=== PATIENT | male | born 1965 | race Caucasian/White ===

== ENCOUNTER 2017-08-04 20:31 | Inpatient (IN) | payer OTHER ==
[~2017-08-04] VITALS: Ht 182.9 cm; Wt 111.1 kg
--- NOTE | 2017-08-04 20:46 | ED PSYCHIATRIC COMPLAINT ---
History of Present Illness General Chief Complaint: ETOH/Drug Related Complaint Stated Complaint: HERE FOR HIGHWATCH CLEARANCE Source: patient, old records Exam Limitations: despondent and somewhat impatient Vital Signs & Intake/Output Vital Signs & Intake/Output Vital Signs Date Time Temp Pulse Resp B/P B/P Pulse O2 O2 Flow FiO2 Mean Ox Delivery Rate 06/ 1235 98.7 104 22 120/80 06/03 1233 98.7 104 22 120/80 96 Room Air 06/03 1125 98.0 114 20 134/80 06/03 1030 98.0 114 20 134/80 06/03 1030 98.0 114 20 134/80 94 Room Air 06/03 0840 97.0 100 22 118/68 06/03 0838 97.0 100 22 118/68 98 Room Air 06/03 0703 98.2 80 126/76 06/03 0624 98.2 80 18 126/76 06/03 0612 98.2 80 17 126/76 96 Room Air 06/03 0415 97.0 89 18 111/62 06/03 0415 97.9 89 18 111/62 98 Room Air 06/03 0301 88 18 103/58 06/03 0239 88 18 103/58 95 Room Air 06/03 0015 98.1 106 18 123/85 06/02 2216 98.1 106 123/83 95 Room Air 06/02 2129 98.5 116 24 147/104 06/02 2043 98.5 116 24 147/104 96 Room Air ED Intake and Output 06/03 0000 06/02 1200 Intake Total Output Total Balance Patient 245 lb Weight Weight Reported by Patient Measurement Method Allergies Coded Allergies: No Known Allergies (08/04/17) Triage Nurses Notes Reviewed? yes HPI: Patient presents for evaluation of alcohol dependence and grieving. Patient's brother committed suicide on of this week the patient has been binge drinking alcohol since. Although he denies suicide ideation he is clearly upset about what has happened. He states that he has been an alcoholic drinking anywhere from 12-18 beers daily along with wine and vodka. He states he does experience withdrawal symptoms when he quits drinking but has never had a withdrawal seizure. He has had 3 prior detoxifications. His last alcohol use was about 2 hours ago. He denies cigarette smoking or drug use. (Darling CONKLINJoselito) Past History Travel History Traveled to [place] past 21 day No Medical History Any Pertinent Medical History? 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 No (Joselito Hastings MD) Review of Systems Review of Systems Constitutional: Reports: no symptoms. EENTM: Reports: no symptoms. Respiratory: Reports: no symptoms. Cardiovascular: Reports: no symptoms. GI: Reports: no symptoms. Genitourinary: Reports: no symptoms. Musculoskeletal: Reports: no symptoms. Skin: Reports: no symptoms. Neurological/Psychological: Reports: no symptoms. Hematologic/Endocrine: Reports: no symptoms. Immunologic/Allergic: Reports: no symptoms. All Other Systems: Reviewed and Negative (Joselito Hastings MD) Physical Exam Physical Exam General Appearance: see below Neurological/Psychiatric: see below Comments: General: Alert, calm, cooperative but inpatient at times (patient expressed his impatience and wish to leave the emergency department repeatedly) Head: Normocephalic, atraumatic Eyes: Normal inspection, no nystagmus, EOMI Ears: Normal inspection Nose: Normal inspection Throat: Moist mucosa Neck: Supple, no goiter Heart: Regular rate and rhythm, no murmurs rubs or gallops Lungs: Clear to auscultation bilaterally with good air entry Abdomen: Soft nontender nondistended, normal bowel sounds Chest: Nontender Extremities: Normal range of motion grossly, no tremors present, no cyanosis clubbing or edema of the upper extremities Neurologic: cranial nerves II through XII grossly intact, speech clear, gait normal Psychiatric: No apparent delusions or hallucinations, no pressured speech or thought blocking SAD PERSONS Done? patient not suicidal (Joselito Hastings MD) Progress Differential Diagnosis: drug intoxication, drug overdose, drug withdrawal, electrolyte abnormality, hypoglycemia Plan of Care: Orders Procedure Date/time Status Regular Diet 08/05 L Active Pathway - chart 08/05 111 Active House Staff 08/05 111 Active Patient Data 08/05 1117 Active Code Status 08/05 1117 Active Patient Data 08/05 1057 Active OXYGEN SETUP (GEN) 08/05 1044 Active Saline Lock 08/05 1044 Active Admit to inpatient 08/05 1044 Active Vital Signs 08/05 1044 Active Activity/Ambulation 08/05 1044 Active Code Status 08/05 1044 Complete Intake & Output 08/05 0609 Active VTE Mechanical Prophylaxis 08/05 UNK Active SOCIAL WORK CONSULT 08/05 UNK Active PSYCHIATRIC CONSULT 08/05 UNK Active CIWA 08/05 2119 Active URINE DRUG SCREEN FOR ER ONLY 08/05 2119 Complete MAGNESIUM 08/05 2119 Complete LIPASE 08/05 2119 Complete ETHANOL 08/05 2119 Complete COMPREHENSIVE METABOLIC PANEL 08/05 2119 Complete CBC WITHOUT DIFFERENTIAL 08/05 2119 Complete Current Medications Sig/Carol Start time Last Medication Dose Stop Time Status Admin Multivitamins 1 TAB DAILY 08/06 0900 AC (Theragran Vitamins) Trazodone HCl 50 MG AT BEDTIME 08/05 2100 AC (Desyrel) Lorazepam 2 MG Q6 08/05 1200 AC 08/05 (Ativan) 1205 Dextrose/Sodium 1,000 ML Q13H 08/05 1130 AC 08/05 Chloride 1123 (D5W-1/2 Normal Saline 1000ML) Clonidine 0.1 MG BID 08/05 1119 AC (Catapres) Enoxaparin Sodium 40 MG DAILY 08/05 1117 AC 08/05 (Lovenox) 1134 Thiamine HCl 100 MG DAILY 08/05 1116 AC (Vitamin B1) Lorazepam 0 Q1P PRN 08/05 1115 AC (Ativan) Gabapentin 300 MG Q8 08/05 0847 AC 08/05 (Neurontin) 0840 Laboratory Tests 08/04/172123: Urine Opiates Screen < 100, Methadone Screen < 40, Barbiturate Screen < 60, Ur Phencyclidine Scrn < 6.00, Amphetamines Screen < 100, U Benzodiazepines Scrn < 85, Urine Cocaine Screen < 50, Urine Cannabis Screen < 5.00 08/04/172119: Anion Gap 16, Estimated GFR > 60, BUN/Creatinine Ratio 9.0, Glucose 115 H, Calcium 9.1, Magnesium 2.4 H, Total Bilirubin 0.5, AST 42, ALT 54, Alkaline Phosphatase 67, Total Protein 7.7, Albumin 4.6, Globulin 3.1, Albumin/Globulin Ratio 1.5, Lipase 230, CBC w Diff NO MAN DIFF REQ, RBC 5.68, MCV 95.3 H, MCH 32.9 H, MCHC 34.5, RDW 13.4, MPV 6.7 L, Gran % 61.5, Lymphocytes % 30.1, Monocytes % 6.8, Eosinophils % 0.9, Basophils % 0.7, Absolute Granulocytes 3.6, Absolute Lymphocytes 1.8, Absolute Monocytes 0.4, Absolute Eosinophils 0.1, Absolute Basophils 0, Serum Alcohol 294.0 Comments: 08/04/2017 10:04:26 PM Micha is sleeping comfortably. 08/04/2017 11:03:42 PM Micha is now awake and starting to feel a bit worse. He states he is feeling very anxious and uncomfortable. He is requesting something to help him fall asleep. 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 (Darling CONKLIN,Joselito Andrew) Departure Departure Disposition: STILL A PATIENT Condition: Stable Clinical Impression Primary Impression: Alcohol dependence Secondary Impressions: Grieving Departure Forms: Customer Survey General Discharge Information (Darling CONKLIN,Joselito Andrew) Admission Note Spoke With: Terri Cook MD Documentation of Exam: Documentation of any treatments & extenuating circumstances including Concerns Regarding Discharge (functional status, medication knowledge or non-compliance, living conditions, etc.) that warrant an admission rather than observation: Serial CIWA benzodiazepine to prevent alcohol withdrawal psychiatric evaluation for alcohol dependence medication adjustment continuing care discharge planning (Ethan Jennings MD) Critical Care Note Critical Care Note Critical Care Time: 30-74 min (40) (Ethan Jennings MD)
[2017-08-04 21:29] VITALS: BP 147/104
[2017-08-04 21:32] LABS: ABSOLUTE BASOPHIL COUNT 0 /CUMM (0.0-0.2); ABSOLUTE EOSINOPHIL COUNT 0.1 /CUMM (0.0-0.7); ABSOLUTE GRANULOCYTE CT 3.6 /CUMM (1.4-6.5); ABSOLUTE LYMPH COUNT 1.8 /CUMM (1.2-3.4); ABSOLUTE MONOCYTE COUNT 0.4 /CUMM (0.10-0.60); BASOPHIL % 0.7 % (0.0-2.0); EOSINOPHIL % 0.9 % (0-5); GRANULOCYTE % 61.5 % (42.2-75.2); HEMATOCRIT 54.2 % (42-52); MEAN CORPUSCULAR HGB 32.9 PG (27.0-31.0); MEAN CORPUSCULAR HGB CONC 34.5 G/DL (33.0-37.0); MEAN CORPUSCULAR VOLUME 95.3 FL (80.0-94.0); MEAN PLATELET VOLUME 6.7 FL (7.4-10.4); PLATELET COUNT 260 /CUMM (130-400); RBC DISTRIBUTION WIDTH 13.4 % (11.5-14.5); RED BLOOD CELL CT 5.68 /CUMM (4.70-6.10); WHITE BLOOD CELL COUNT 5.9 /CUMM (4.8-10.8)
[2017-08-05] VITALS (12 sets, daily range): BP systolic 103–150; BP diastolic 58–100
--- NOTE | 2017-08-05 11:17 | History & Physical ---
Jaquelin CONKLIN,Glenny 08/05/17 1106: General Information and HPI MD Statement: I have seen and personally examined MARCELLA MOMIN and documented this H&P. The patient is a 52 year old M who presented with a patient stated chief complaint of [EtOH withdrawal]. Source of Information: patient, family, old records Exam Limitations: no limitations History of Present Illness: Patient is a 52-year-old male here for the high watch clearance. Past medical history -anxiety, depression, insomnia According to the ED notes -patient's brother committed suicide on (08/02), since then he has been binge drinking alcohol. He denies SI/HI. Alcohol drinking history -he started drinking alcohol since the age of 17. He was using wine, vodka, burbin. He usually drinks 1-2 bottles in a day and one bottle in the night but sometimes to binge drinking. He tried to quit alcohol and joint detox program 3 times ,([facility] He started drinking alcohol again because he cannot control himself and usually started a social drinker. He denies for any social related problems including drunk driving, and alcohol related withdrawal seizures hospital admission, intubation. Has last drink was 08/04/2017, around 8 AM after he woke up. Personal history -he lives at home with the family including and 2 sons. 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 Allergies -no known drug allergies Surgeries-repair of inguinal hernia bilaterally in 1981, fracture of fingers? Pins Family history -alcohol use disorder in siblings and parents and grandparents. 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 Neurological/Psychological: Reports: tremors. Exam & Diagnostic Data Last 24 Hrs of Vital Signs/I&O Vital Signs Date Time Temp Pulse Resp B/P B/P Pulse O2 O2 Flow FiO2 Mean Ox Delivery Rate 08/05 1125 98.0 114 20 134/80 06/03 1030 98.0 114 20 134/80 06/03 1030 98.0 114 20 134/80 94 Room Air 06/03 0840 97.0 100 22 118/68 06/03 0838 97.0 100 22 118/68 98 Room Air 06/03 0703 98.2 80 126/76 06/03 0624 98.2 80 18 126/76 06/03 0612 98.2 80 17 126/76 96 Room Air 06/03 0415 97.0 89 18 111/62 06/03 0415 97.9 89 18 111/62 98 Room Air 06/03 0301 88 18 103/58 06/03 0239 88 18 103/58 95 Room Air 06/03 0015 98.1 106 18 123/85 /02 2216 98.1 106 123/83 95 Room Air /02 2129 98.5 116 24 147/104 08/04 2043 98.5 116 24 147/104 96 Room Air Intake & Output 08/05 1600 08/05 0800 08/05 0000 Intake Total 240 Output Total Balance 240 Intake, Oral 240 Patient 111.13 kg Weight Weight Reported by Patient Measurement Method Physical Exam General Appearance Alert, Oriented X3, Cooperative, No Acute Distress Skin FLUSHED HEENT Atraumatic, PERRLA, EOMI Neck Supple, No JVD Cardiovascular Normal S1, Normal S2 Lungs Clear to Auscultation, Normal Air Movement Abdomen Soft, No Tenderness Extremities No Clubbing, No Cyanosis, No Edema, SCABS AND EXCORIATION OF MELENDEZ Vascular Normal Pulses, Pulses Symmetrical Last 24 Hrs of Labs/Nicola: Laboratory Tests 08/04/172123: Urine Opiates Screen < 100, Methadone Screen < 40, Barbiturate Screen < 60, Ur Phencyclidine Scrn < 6.00, Amphetamines Screen < 100, U Benzodiazepines Scrn < 85, Urine Cocaine Screen < 50, Urine Cannabis Screen < 5.00 08/04/172119: Anion Gap 16, Estimated GFR > 60, BUN/Creatinine Ratio 9.0, Glucose 115 H, Calcium 9.1, Magnesium 2.4 H, Total Bilirubin 0.5, AST 42, ALT 54, Alkaline Phosphatase 67, Total Protein 7.7, Albumin 4.6, Globulin 3.1, Albumin/Globulin Ratio 1.5, Lipase 230, CBC w Diff NO MAN DIFF REQ, RBC 5.68, MCV 95.3 H, MCH 32.9 H, MCHC 34.5, RDW 13.4, MPV 6.7 L, Gran % 61.5, Lymphocytes % 30.1, Monocytes % 6.8, Eosinophils % 0.9, Basophils % 0.7, Absolute Granulocytes 3.6, Absolute Lymphocytes 1.8, Absolute Monocytes 0.4, Absolute Eosinophils 0.1, Absolute Basophils 0, Serum Alcohol 294.0 Diagnostic Data EKG Results NOT DONE CXR Results not done Assessment/Plan Assessment: Patient is a 52-year-old male here for the high watch clearance. ED course -vital signs at the time of admission -temperature 98.5, pulse 116, respiratory rate 12, blood pressure 147/104, SPO2 96% on room air. Blood workup -hemoglobin 18.7, hematocrit 54.2, MCV 95, WBC 5.9, platelet count 260, serum sodium 135, potassium 4.2, chloride 106, anion gap 16, BUN 9, creatinine 1.0, glucose 115, calcium 9.1, magnesium 2.4, total bilirubin 0.5, AST 42, ALT 54, alkaline phosphatase 67, total protein 7.7, albumin 4.6, U tox was negative, serum alcohol 294. He was given Lorazepam, gabapentin, multivitamin in the ED. Assessment and plan Alcohol use disorder - * We will admit the patient to general medicine floor * We will start patient on IV fluids 75 cc/h * Injection Ativan according to the CIWA score * Tablet lorazepam 2 mg every 6 * Tablet trazodone 50 mg at bedtime * Tablet clonidine 0.1 mg twice daily * Tablet multivitamin once daily * Psych consult * Social work consult high hematocrit and hemoglobin- * We started patient on IV fluids 75 cc/h * We will recheck CBC and hematocrit tomorrow * If he continued to have high hematocrit. Advised him to follow-up with nutrition professor as an outpatient. Patient wanted to go [facility] care after detox. He also requested that his brother's is on Sunday, and he wanted to attend it. Diet -regular diet CODE STATUS-full code DVT prophylaxis- ALP s/heparin As Ranked By This Provider Problem List: 1. Alcohol dependence Core Measures/Misc (11/19) Acute Coronary Syndrome ACS Diagnosis: No Congestive Heart Failure Congestive Heart Failure Diagnosis No Cerebrovascular Accident CVA/TIA Diagnosis: No VTE (View Protocol) VTE Risk Factors Age>40 No Mechanical VTE Prophylaxis d/t N/A MechProphylax Ordered No VTE Pharm Prophylaxis d/t NA PharmProphylax ordered Sepsis (View protocol) Sepsis Present: No If YES complete Sepsis Event Note If YES complete Sepsis Event Note Terri Cook MD 08/05/17 1246: Core Measures/Misc (11/19) Sepsis (View protocol) If YES complete Sepsis Event Note If YES complete Sepsis Event Note Attending MD Review Statement Attending Statement Attending MD Statement: examined this patient, discuss w/resident/PA/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 His CIWA scores were high he was persistently tachycardic and required multiple doses of Ativan in the ER. At this point we are going to bring him into GEN med, he appears to be hemoconcentrated with a hemoglobin of 18 so will hydrate him gently and repeat the hemoglobin. Give Ativan [id number] and Ativan per CIWA. We'll do thiamine, folate and multivitamins. He is tachycardic so will check a baseline EKG. DVT prophylaxis, social work consult and outpatient follow-up on discharge. Patient is extremely keen on leaving on Sunday as it's his brother's on that day.
--- NOTE | 2017-08-05 12:46 | Admission Certification ---
Admission Certification Certification Statement - As attending physician, I certify that at the time of - admission, based on clinical presentation, severity of - symptoms, need for further diagnostic testing and - therapeutic interventions, and risk of adverse outcomes - without in-hospital treatment, in my clinical assessment, - this patient requires an acute hospital stay for a minimum - of two nights or longer. I have also considered psychsocial - factors such as support system, advanced age, financial - issues, cognitive issues, and failed out-patient treatments, - past re-admission history, safety of patient, and lack of - compliance as applicable. Specific rationale supporting this admission is: Acute alcohol withdrawal with impending DTs.
[2017-08-06] VITALS (11 sets, daily range): BP systolic 111–160; BP diastolic 69–106
--- NOTE | 2017-08-06 07:12 | PN- Housestaff ---
Subjective Follow-up For: Alcohol detox Subjective: CIWA 0-20. Patient reports he lost his brother to suicide last and was what prompted him to drink. He denies nausea, vomiting, abdominal pain, SI/HI Review of Systems Constitutional: Reports: see HPI. Objective Last 24 Hrs of Vital Signs/I&O Vital Signs Date Time Temp Pulse Resp B/P B/P Pulse O2 O2 Flow FiO2 Mean Ox Delivery Rate 08/06 1331 98.4 81 18 128/73 94 Room Air 06/04 1135 97.5 84 18 139/95 96 Room Air 06/04 1006 98.2 95 19 136/83 95 Room Air 06/04 1005 98.2 97 19 136/83 95 Room Air 06/04 0900 80 18 130/90 94 Room Air 06/04 0754 98.0 64 18 111/69 06/04 0731 98.0 64 18 111/69 96 Room Air 06/04 0519 77 18 147/93 06/04 0511 77 18 147/93 93 Room Air 06/04 0244 86 18 133/82 06/04 0049 98.0 97 18 151/84 95 Room Air 06/04 0046 98.0 97 18 151/84 06/03 2245 104 18 145/94 06/03 2242 104 18 145/94 94 Room Air 06/03 2135 98.6 91 18 150/100 06/03 2030 72 18 138/71 97 Room Air 06/03 1832 91 18 150/100 06/03 1831 91 18 150/100 95 Room Air 06/03 1701 98.6 92 18 150/83 06/03 1643 98.2 92 18 150/83 95 Room Air Intake & Output 08/06 1600 /04 0800 06/04 0000 Intake Total 1080 Output Total 300 Balance 780 Intake, IV 600 Intake, Oral 480 Output, Urine 300 Patient 245 lb Weight Weight Reported by Patient Measurement Method Physical Exam General Appearance: Alert, Oriented X3, Cooperative, No Acute Distress Cardiovascular: Regular Rate, Normal S1, Normal S2 Lungs: Clear to Auscultation, Normal Air Movement Abdomen: Normal Bowel Sounds, Soft, No Tenderness Current Medications: Current Medications Sig/Carol Start time Last Medication Dose Route Stop Time Status Admin Clonidine 0 .STK-MED ONE 08/05 2132 DC PO Clonidine 0.1 MG BID 08/05 1119 AC 08/06 PO 0902 Dextrose/Sodium 1,000 ML Q13H 08/05 1130 AC 08/06 Chloride IV 1400 Enoxaparin Sodium 40 MG DAILY 08/05 1117 AC 08/06 SC 0902 Gabapentin 0 .STK-MED ONE 08/06 0636 DC PO Gabapentin 0 .STK-MED ONE 08/05 2134 DC PO Gabapentin 300 MG Q8 08/05 0847 AC 08/06 PO 1400 Lorazepam 0 .STK-MED ONE 08/06 1219 DC PO Lorazepam 0 .STK-MED ONE 08/06 0907 DC .ROUTE Lorazepam 0 .STK-MED ONE 08/06 0636 DC PO Lorazepam 0 .STK-MED ONE 08/06 0041 DC PO Lorazepam 0 .STK-MED ONE 08/06 0041 DC .ROUTE Lorazepam 0 .STK-MED ONE 08/05 2312 DC .ROUTE Lorazepam 0 .STK-MED ONE 08/05 2044 DC .ROUTE Lorazepam 0 .STK-MED ONE 08/05 1842 DC .ROUTE Lorazepam 0 .STK-MED ONE 08/05 1835 DC PO Lorazepam 0 .STK-MED ONE 08/05 1715 DC .ROUTE Lorazepam 2 MG Q6 08/05 1200 AC 08/06 PO 1214 Lorazepam 0 Q1P PRN 08/05 1115 AC 08/06 IV 0902 Multivitamins 1 TAB DAILY 08/06 0900 AC 08/06 PO 0902 Thiamine HCl 100 MG DAILY 08/05 1116 AC 08/06 PO 0902 Trazodone HCl 0 .STK-MED ONE 08/05 2133 DC PO Trazodone HCl 50 MG AT BEDTIME 08/05 2100 AC 08/05 PO 2127 Last 24 Hrs of Lab/Nicola Results Last 24 Hrs of Labs/Mics: Laboratory Tests 08/06/17 1327: Anion Gap 4 L, Estimated GFR > 60, BUN/Creatinine Ratio 14.0, CBC w Diff NO MAN DIFF REQ, RBC 4.83, MCV 95.8 H, MCH 33.1 H, MCHC 34.6, RDW 13.2, MPV 7.4, Gran % 75.7 H, Lymphocytes % 11.6 L, Monocytes % 10.9 H, Eosinophils % 1.6, Basophils % 0.2, Absolute Granulocytes 4.2, Absolute Lymphocytes 0.6 L, Absolute Monocytes 0.6, Absolute Eosinophils 0.1, Absolute Basophils 0 Assessment/Plan Assessment: Mr. Elam is a 52-year-old male past medical history anxiety, depression, insomnia who presented to the ED for alcohol detox and high watch clearance. Plan: Monitor and replete magnesium and potassium PRN Continue Ativan per CIWA protocol Continue taper with Scheduled Ativan at 2 mg every 6 Continue MVI, thiamine supplement Appreciate [facility] recommendations for lost of family member Diet: Regular DVT ppx: sc Lovenox Code: Full Problem List: 1. Alcohol dependence 2. Grieving Pain Ratin Pain Location: NA Pain Goal: Remain pain free Pain Plan: NA Tomorrow's Labs & Rationales: none
--- NOTE | 2017-08-06 13:08 | PN- Att Addend ---
Attending Addendum Attending Brief Note Patient seen and examined, offers no complaints. Patient is withdrawing from alcohol and CIWA sores are running high. Vital Signs Date Time Temp Pulse Resp B/P B/P Pulse O2 O2 Flow FiO2 Mean Ox Delivery Rate 06/04 1135 97.5 84 18 139/95 96 Room Air 06/04 1006 98.2 95 19 136/83 95 Room Air 06/04 1005 98.2 97 19 136/83 95 Room Air 06/04 0900 80 18 130/90 94 Room Air 06/04 0754 98.0 64 18 111/69 06/04 0731 98.0 64 18 111/69 96 Room Air 06/04 0519 77 18 147/93 06/04 0511 77 18 147/93 93 Room Air 06/04 0244 86 18 133/82 06/04 0049 98.0 97 18 151/84 95 Room Air 06/04 0046 98.0 97 18 151/84 06/03 2245 104 18 145/94 06/03 2242 104 18 145/94 94 Room Air 06/03 2135 98.6 91 18 150/100 06/03 2030 72 18 138/71 97 Room Air 06/03 1832 91 18 150/100 06/03 1831 91 18 150/100 95 Room Air 06/03 1701 98.6 92 18 150/83 06/03 1643 98.2 92 18 150/83 95 Room Air 06/03 1430 98.1 107 20 130/80 06/03 1430 98.1 107 20 130/80 96 Room Air 06/03 1329 98.0 100 122/86 on exam; aox3, nad. cv; s1,s2, rrr resp; clear ab; soft, nt, bs+ ext; no edema no labs. A/P: 52-year-old male with past medical history significant for alcohol use was admitted with acute on intoxication needing detox. His brother committed suicide on August 02 tests but exacerbated that drinking. Patient currently on scheduled Ativan. Continue the current dose of Ativan. Continue when necessary Ativan with fever protocol. Please check his CBC and BP. Patient did have polycythemia on initial lab likely secondary to dehydration. Patient getting IV hydration. Patient on Lovenox for DVT prophylaxis. PLease obtain SW consult.
[2017-08-06 13:51] LABS: ABSOLUTE BASOPHIL COUNT 0 /CUMM (0.0-0.2); ABSOLUTE EOSINOPHIL COUNT 0.1 /CUMM (0.0-0.7); ABSOLUTE GRANULOCYTE CT 4.2 /CUMM (1.4-6.5); ABSOLUTE LYMPH COUNT 0.6 /CUMM (1.2-3.4); ABSOLUTE MONOCYTE COUNT 0.6 /CUMM (0.10-0.60); BASOPHIL % 0.2 % (0.0-2.0); EOSINOPHIL % 1.6 % (0-5); GRANULOCYTE % 75.7 % (42.2-75.2); MEAN CORPUSCULAR HGB 33.1 PG (27.0-31.0); MEAN CORPUSCULAR HGB CONC 34.6 G/DL (33.0-37.0); MEAN CORPUSCULAR VOLUME 95.8 FL (80.0-94.0); MEAN PLATELET VOLUME 7.4 FL (7.4-10.4); PLATELET COUNT 167 /CUMM (130-400); RBC DISTRIBUTION WIDTH 13.2 % (11.5-14.5); RED BLOOD CELL CT 4.83 /CUMM (4.70-6.10); WHITE BLOOD CELL COUNT 5.5 /CUMM (4.8-10.8)
[2017-08-06 13:55] LABS: HEMATOCRIT 46.3 % (42-52)
[2017-08-07 00:53] VITALS: BP 116/71
[2017-08-07 06:43] VITALS: BP 107/81
--- NOTE | 2017-08-07 08:38 | PN- Housestaff ---
Zoe Cabrales 08/07/17 0838: Subjective Follow-up For: Alcohol detox Subjective: Patient reports his brother's is today and will like to attend and come back afterwards to complete detox treatment. Patient in bed crying in grief but denies any SI/HI Left message on vm with Roseline do update but no answer Review of Systems Constitutional: Reports: see HPI. Objective Last 24 Hrs of Vital Signs/I&O Vital Signs Date Time Temp Pulse Resp B/P B/P Pulse O2 O2 Flow FiO2 Mean Ox Delivery Rate / 0926 96.8 76 18 109/59 06/05 0845 96.8 76 18 109/59 06/05 0844 96.8 76 18 109/59 98 Room Air 06/05 0643 96.9 91 20 107/81 06/05 0641 96.9 91 18 107/81 96 Room Air 06/05 0313 77 20 100 Room Air 06/05 0253 77 20 06/05 0053 97.0 71 20 116/71 06/05 0053 97.0 71 18 116/71 94 Room Air 06/04 2253 96.9 86 18 152/106 06/04 2253 96.4 86 18 152/106 97 Room Air 06/04 2053 98.1 83 20 135/91 06/04 2053 98.1 83 18 135/91 06/04 2053 98.1 83 18 135/91 95 Room Air 06/04 1857 98.0 88 18 148/74 06/04 1856 98.0 88 18 148/74 98 Room Air 06/04 1554 97.6 91 18 160/86 06/04 1535 97.6 91 18 160/86 97 Room Air 06/04 1331 98.4 81 18 128/73 94 Room Air 06/04 1135 97.5 84 18 139/95 96 Room Air Intake & Output 06/05 1600 06/05 0800 06/05 0000 Intake Total 495 Output Total 700 Balance -205 Intake, IV 375 Intake, Oral 120 Output, Urine 700 Physical Exam General Appearance: Alert, Oriented X3, Cooperative, Moderate Distress Cardiovascular: Regular Rate, Normal S1, No Murmurs Lungs: Clear to Auscultation, Normal Air Movement Abdomen: Normal Bowel Sounds, Soft, No Tenderness Current Medications: Current Medications Sig/Carol Start time Last Medication Dose Route Stop Time Status Admin Clonidine 0.1 MG BID 08/05 1119 08/07 PO 0926 Dextrose/Sodium 1,000 ML Q13H 08/05 1130 08/07 Chloride IV 0252 Enoxaparin Sodium 40 MG DAILY 08/05 1117 08/07 SC 0926 Gabapentin 0 .STK-MED ONE 08/07 0645 DC PO Gabapentin 300 MG Q8 08/05 0847 08/07 PO 0641 Lorazepam 0 .STK-MED ONE 08/07 0936 DC .ROUTE Lorazepam 0 .STK-MED ONE 08/07 0656 DC .ROUTE Lorazepam 0 .STK-MED ONE 08/07 0646 DC PO Lorazepam 0 .STK-MED ONE 08/07 0049 DC PO Lorazepam 0 .STK-MED ONE 08/06 1823 DC PO Lorazepam 0 .STK-MED ONE 08/06 1606 DC .ROUTE Lorazepam 0 .STK-MED ONE 08/06 1219 DC PO Lorazepam 2 MG Q6 08/05 1200 AC 08/07 PO 0641 Lorazepam 0 Q1P PRN 08/05 1115 08/07 IV 0931 Multivitamins 1 TAB DAILY 08/06 0900 08/07 PO 0926 Thiamine HCl 100 MG DAILY 08/05 1116 08/07 PO 0926 Trazodone HCl 50 MG AT BEDTIME 08/05 2100 08/06 PO 2052 Last 24 Hrs of Lab/Nicola Results Last 24 Hrs of Labs/Mics: Laboratory Tests 08/06/17 1327: Anion Gap 4 L, Estimated GFR > 60, BUN/Creatinine Ratio 14.0, CBC w Diff NO MAN DIFF REQ, RBC 4.83, MCV 95.8 H, MCH 33.1 H, MCHC 34.6, RDW 13.2, MPV 7.4, Gran % 75.7 H, Lymphocytes % 11.6 L, Monocytes % 10.9 H, Eosinophils % 1.6, Basophils % 0.2, Absolute Granulocytes 4.2, Absolute Lymphocytes 0.6 L, Absolute Monocytes 0.6, Absolute Eosinophils 0.1, Absolute Basophils 0 Assessment/Plan Assessment: Mr. Elam is a 52-year-old male past medical history anxiety, depression, insomnia who presented to the ED for alcohol detox and high watch clearance. Plan: Await Social work recommendations for patient to attend today and return for treatment. If no options patient will leave AMA Monitor and replete magnesium and potassium PRN Continue Ativan per CIWA protocol Continue taper with Scheduled Ativan at 2 mg every 6 Continue MVI, thiamine supplement Appreciate [facility] recommendations for lost of family member Diet: Regular DVT ppx: sc Lovenox Code: Full Problem List: 1. Grieving 2. Alcohol dependence Pain Ratin Pain Location: NA Pain Goal: Remain pain free Pain Plan: NA Tomorrow's Labs & Rationales: none Britany Mansfield MD 08/07/17 1202: Attending MD Review Statement Attending Statement Attending MD Statement: examined this patient, discuss w/resident/PA/DATA WAREHOUSING ENGINEER, agreed w/resident/PA/DATA WAREHOUSING ENGINEER, reviewed EMR data (avail), discussed with nursing, discussed with case mgmt, reviewed images, amended to note Attending Assessment/Plan: Patient seen and examined, he is very upset and sad today because today is his brother's . He wants to attend the . His CIWA scores are running okay and this morning it was 10. Patient wants to attend his brother's . Vital Signs Date Time Temp Pulse Resp B/P B/P Pulse O2 O2 Flow FiO2 Mean Ox Delivery Rate 08/07 1045 97.8 78 18 164/82 06/ 1041 97.8 78 18 164/82 94 Room Air 06/05 0926 96.8 76 18 109/59 06/05 0845 96.8 76 18 109/59 06/05 0844 96.8 76 18 109/59 98 Room Air 06/05 0643 96.9 91 20 107/81 06/05 0641 96.9 91 18 107/81 96 Room Air 06/05 0313 77 20 100 Room Air 06/05 0253 77 20 06/05 0053 97.0 71 20 116/71 06/05 0053 97.0 71 18 116/71 94 Room Air / 225 96.9 86 18 152/106 /2252 96.4 86 18 152/106 97 Room Air /2052 98.1 83 20 135/91 /2052 98.1 83 18 135/91 /2052 98.1 83 18 135/91 95 Room Air 06/04 1857 98.0 88 18 148/74 06/04 1856 98.0 88 18 148/74 98 Room Air 08/06 1554 97.6 91 18 160/86 08/06 1535 97.6 91 18 160/86 97 Room Air 08/06 1331 98.4 81 18 128/73 94 Room Air on exam; aox3, nad. cv; s1,s2, rrr resp; clear abd; soft, nt, bs+ ext; no edema Laboratory Tests 08/06 1327 Chemistry Sodium (137 - 145 mmol/L) 138 Potassium (3.5 - 5.1 mmol/L) 3.9 Chloride (98 - 107 mmol/L) 104 Carbon Dioxide (22 - 30 mmol/L) 30 Anion Gap (5 - 16) 4 L BUN (9 - 20 mg/dL) 14 Creatinine (0.7 - 1.2 mg/dL) 1.0 Estimated GFR (>60 ml/min) > 60 BUN/Creatinine Ratio (7 - 25 %) 14.0 Hematology CBC w Diff NO MAN DIFF REQ WBC (4.8 - 10.8 /CUMM) 5.5 RBC (4.70 - 6.10 /CUMM) 4.83 Hgb (14.0 - 18.0 G/DL) 16.0 Hct (42 - 52 %) 46.3 MCV (80.0 - 94.0 FL) 95.8 H MCH (27.0 - 31.0 PG) 33.1 H MCHC (33.0 - 37.0 G/DL) 34.6 RDW (11.5 - 14.5 %) 13.2 Plt Count (130 - 400 /CUMM) 167 MPV (7.4 - 10.4 FL) 7.4 Gran % (42.2 - 75.2 %) 75.7 H Lymphocytes % (20.5 - 51.1 %) 11.6 L Monocytes % (1.7 - 9.3 %) 10.9 H Eosinophils % (0 - 5 %) 1.6 Basophils % (0.0 - 2.0 %) 0.2 Absolute Granulocytes (1.4 - 6.5 /CUMM) 4.2 Absolute Lymphocytes (1.2 - 3.4 /CUMM) 0.6 L Absolute Monocytes (0.10 - 0.60 /CUMM) 0.6 Absolute Eosinophils (0.0 - 0.7 /CUMM) 0.1 Absolute Basophils (0.0 - 0.2 /CUMM) 0 A/P; 52-year-old male with past medical history significant for alcohol use was admitted with acute on intoxication needing detox. Patient currently on scheduled and when necessary Ativan per seed off. He is upset and sad today because today is his brother's which she wants to attend. Discussed with social insurance analyst who had discussed the Paul Mims MD. Plan is to get psych evaluation to make sure that he has the capacity. To me he looks like that he does have a capacity to make his own decisions. But will get psychiatry on board as well. Patient will have to leave AGAINST MEDICAL ADVICE to attend the . We will not give him any medication supply before he leaves but he is due to get his scheduled dose of Ativan this afternoon. He still on high-dose scheduled Ativan therefore medically he is not stable for discharge yet.
[2017-08-07 08:45] VITALS: BP 109/59
[2017-08-07 10:45] VITALS: BP 164/82
[2017-08-07] MEDS ORDERED: GABAPENTIN300 M2 PO ×2 (11:13→15:06)
[2017-08-07] MEDS ORDERED: VITAMIN B-1100 MG PO ×2 (11:13→15:06)
[2017-08-07] MEDS ORDERED: ONE DAILY MULT1 EAC2 PO ×2 (11:13→15:06)
[2017-08-07] MEDS ORDERED: CLONIDINE HCL0.1 MG PO ×2 (11:13→15:06)
--- NOTE | 2017-08-07 11:15 | Patient Discharge Instructions ---
Discharge Instructions General Discharge Information You were seen/treated for: Alcohol detox Special Instructions: - By leaving AMA, you understand the risks of clinical deterioration including anxiety, agitation, tremors, seizures, hallucinations, abdominal pain, nausea/ vomiting/diarrhea/constipation, or any other of your underlying medical conditions which could become as severe as causes of . You should return to any emergency/urgent care services without closest proximity if any worsening of your existing or new-onset of discomfort/symptoms. - Continue your current medications per discharge instructions. - Please watch for the symptoms stated above and return to the ED as soon as possible Diet Continue normal diet: Yes Activity Full Activity/No Limits: Yes Acute Coronary Syndrome Inclusion Criteria At DC or during hospital stay patient has or had the following: ACS DIAGNOSIS No Discharge Core Measures Meds if any: Prescribed or Continued at Discharge Meds if any: NOT Prescribed or Continued at Discharge Congestive Heart Failure Inclusion Criteria At DC or during hospital stay patient has or had the following: CHF DIAGNOSIS No Discharge Core Measures Meds if any: Prescribed or Continued at Discharge Meds if any: NOT Prescribed or Continued at Discharge Cerebrovascular accident Inclusion Criteria At DC or during hospital stay patient has or had the following: CVA/TIA Diagnosis No Discharge Core Measures Meds if any: Prescribed or Continued at Discharge Meds if any: NOT Prescribed or Continued at Discharge Venous thromboembolism Inclusion Criteria VTE Diagnosis No VTE Type NONE VTE Confirmed by (Test) NONE Discharge Core Measures - Per Current guidelines, there needs to be overlap - treatment for the first 5 days of Warfarin therapy. - If discharged on Warfarin prior to 5 days of - overlap therapy, the patient will need to be - assessed for post discharge needs including - *Post discharge parental anticoagulation - *Warfarin and/or parental anticoagulation education - *Follow up date to check INR post discharge At least 5 days overlap therapy as Inpatient No Meds if any: Prescribed or Continued at Discharge Note: Overlap Therapy is Warfarin and Anticoagulant Meds if any: NOT Prescribed or Continued at Discharge
[2017-08-07 12:28] VITALS: BP 136/82
--- NOTE | 2017-08-07 12:29 | Cons- Psychiatry ---
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 His brother recently committed suicide and pt is requesting to leave to go to . Consult called for capacity to leave AMA. ED course: Laboratory Tests 08/06/17 1327: Anion Gap 4 L, Estimated GFR > 60, BUN/Creatinine Ratio 14.0, CBC w Diff NO MAN DIFF REQ, RBC 4.83, MCV 95.8 H, MCH 33.1 H, MCHC 34.6, RDW 13.2, MPV 7.4, Gran % 75.7 H, Lymphocytes % 11.6 L, Monocytes % 10.9 H, Eosinophils % 1.6, Basophils % 0.2, Absolute Granulocytes 4.2, Absolute Lymphocytes 0.6 L, Absolute Monocytes 0.6, Absolute Eosinophils 0.1, Absolute Basophils 0 Vital Signs Date Time Temp Pulse Resp B/P B/P Pulse O2 O2 Flow FiO2 Mean Ox Delivery Rate 08/07 1045 97.8 78 18 164/82 06/ 1041 97.8 78 18 164/82 94 Room Air 06/05 0926 96.8 76 18 109/59 06/05 0845 96.8 76 18 109/59 06/05 0844 96.8 76 18 109/59 98 Room Air 06/05 0643 96.9 91 20 107/81 06/05 0641 96.9 91 18 107/81 96 Room Air 06/05 0313 77 20 100 Room Air 06/05 0253 77 20 06/05 0053 97.0 71 20 116/71 06/05 0053 97.0 71 18 116/71 94 Room Air 06/04 2253 96.9 86 18 152/106 /2252 96.4 86 18 152/106 97 Room Air 08/06 2052 98.1 83 20 135/91 /2052 98.1 83 18 135/91 /2052 98.1 83 18 135/91 95 Room Air 06/04 1857 98.0 88 18 148/74 / 185 98.0 88 18 148/74 98 Room Air 06/04 1554 97.6 91 18 160/86 06/ 1535 97.6 91 18 160/86 97 Room Air 06/ 1331 98.4 81 18 128/73 94 Room Air CIWA: 0, 10, 12, 8. Over ten mg of Ativan in 24 hours. PPHx: Pt has been drinking since he was 17. He has been to [place] and [place]. No DUI, no intubation or ICU admits for etoh intox/detox. No suicide attempts, no inpatient admits for mental illness. Was treated for depression/ anxiety in the remote past does not remember med trials. No recent depressive sx per his report. He has been drinking over a fifth of hard liquor and since of his brother was binge drinking. Motivated for treatment. 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 Lives wtih and two children. On exam, pt is in bed in [facility] in [facility]. He is alert and oriented. He is slightly tremulous. His speech is clear and goal-directed with normal rate and volume. His mood is sad but "not depressed." His affect is congruent. He becomes tearful when I express my condolences. His thought process is logical and linear. His thought content reveals no delusions, no suicidality and no violent intentions. He is aware he is still withdrawing and reiterated to me that he could seize, become delirious, need to go to the ICU should he continue to detox without Ativan and he states this to me in a credible fashion. He wants to return to a hospital after he pays his respects, and I educated him regarding the timing and symptoms he will experience. He has a good understanding. Collateral: SW and I spoke with who is picking up pt with his best friend. His is not worried that pt wants to hurt himself. Apparently family spoke with pt regarding his mental state and he has no wish to hurt himself or to cause pain to his children. She is aware he will go into withdrawal and that he will need to go to the nearest hospital as quickly as possible. A/ Pt is a 52 y/o M with etoh use disorder here for voluntary detox from alcohol. He experienced the unfortunate tragedy of the suicide of his brother and now wishes to leave AMA to go to the . P/ Pt is processing information clearly and coherently. He is not delirious, psychotic, suicidal or homicidal. He has appropriate plans to return to a hospital for further treatment and a good understanding of how sick he could become should he try to detox without benzodiazepine coverage. -Pt has capacity to leave AMA. [email or web address] Please page #[phone] with any questions.
--- NOTE | 2017-08-07 13:45 | Discharge Summary ---
Visit Information Visit Dates Admission Date: 08/05/17 Discharge Date: 08/07/17 Hospital Course Course Attending Physician: Britany Mansfield MD Primary Care Physician: Unknown Hospital Course: Mr. Elam is a 52-year-old male past medical history anxiety, depression, insomnia who presented to the ED for alcohol detox and high watch clearance. He was admitted to gen medical floor for further evaluation and management. He left AMA to attend his brother's but it was discussed in detail the importance of completing his medical treatment #Alcohol detox/withdrawal He was given Ativan per CIWA protocol with Scheduled Ativan that was tapered daily. He also received daily MVI, thiamine supplementation. He continued to have high CIWA scores but due to his abrupt leaving against medical advice his reatment was not completed. #Normal Grief [facility] was consulted. His grief was considered normal given the fact that his brother approximately a week ago. He was cleared with full capacity to make decisions for himself. He left AMA to attend his brother's and stated he will voluntarily return to the hospital to complete his treatment Allergies: Coded Allergies: No Known Allergies (08/04/17) Disposition Summary Disposition Principal Diagnosis: Alcohol detox/withdrawal Additional Diagnosis: Normal Grief Discharge Disposition: left against medical adv Discharge Instructions General Discharge Information Code Status: Full Code Patient's Diet: Regular Patient's Activity: Full Follow-Up Instructions/Appts: - By leaving AMA, you understand the risks of clinical deterioration including anxiety, agitation, tremors, seizures, hallucinations, abdominal pain, nausea/ vomiting/diarrhea/constipation, or any other of your underlying medical conditions which could become as severe as causes of . You should return to any emergency/urgent care services without closest proximity if any worsening of your existing or new-onset of discomfort/symptoms. - Continue your current medications per discharge instructions. - Please watch for the symptoms stated above and return to the ED as soon as possible Medications at Discharge Discharge Medications: Start taking the following new medications: Multivitamin (One Daily Multivitamin) 1 EACH TABLET 1 Tablet ORAL DAILY Qty = 30 No Refills Instructions: . Thiamine HCl (Vitamin B-1) 100 MG TABLET 100 Milligram ORAL DAILY Qty = 30 No Refills Instructions: . Gabapentin (Gabapentin) 300 MG CAPSULE 1 Capsule ORAL THREE TIMES DAILY Qty = 90 No Refills Instructions: . Clonidine HCl (Clonidine HCl) 0.1 MG TABLET 0.1 Milligram ORAL TWICE DAILY Qty = 14 No Refills Instructions: . Copies To: Jag CONKLIN,Yandy
== END 2017-08-07 14:52 | disposition left against medical advice (07) | DRG 894 ==
LOC: ERH 20:31 → ERHI 08-05 10:44 → ENRESERV 08-06 21:55 → ENTRNSPT 08-06 22:19 → CANRESERV 08-06 22:28 → ENRESERV 08-06 22:28 → EDTRNSPT 08-06 22:31 → EDTRNSPTSTS 08-06 22:31 → CMPTRNSPT 08-06 22:48 → ERHI 08-07 14:52
PROVIDERS: Emergency Medicine; Internal Medicine Adolescent Medicine
DX: F10.239 Alcohol dependence with withdrawal, unspecified (principal); Y90.8 Blood alcohol level of 240 mg/100 ml or more; F32.9 Major depressive disorder, single episode, unspecified; F41.9 Anxiety disorder, unspecified; G47.00 Insomnia, unspecified; Z53.21 Procedure and treatment not carried out due to patient leaving prior to being seen by health care provider; F43.21 Adjustment disorder with depressed mood
CPT/HCPCS: 80307; 82436; 93005; 93010; G0480; J1650; J3490; J7042